=== PATIENT | female | born 1985 | race Caucasian/White ===

== ENCOUNTER 2019-11-28 11:02 | Emergency (ER) | payer OTHER ==
[~2019-11-28] VITALS: Ht 157.5 cm; Wt 95.3 kg
[2019-11-28 12:26] LABS: ABSOLUTE BASOPHILS 0.1 thou/uL (0.0-0.2); ABSOLUTE EOSINOPHILS 0.1 thou/uL (0.0-0.7); ABSOLUTE MONOCYTES 0.6 thou/uL (0.0-1.2); ABSOLUTE NEUTROPHILS 7.6 thou/uL (1.6-8.1); BASOPHILS 0.9 %; EOSINOPHILS 1.3 %; HEMATOCRIT 39.8 % (37.0-47.0); HEMOGLOBIN 13.5 gm/dL (12.0-15.0); LYMPHOCYTES 19.2 %; MCHC 33.9 g/dL (28.0-37.0); MCV 88.5 fL (80.0-100.0); MONOCYTES 5.6 %; NUCLEATED RBCS 0 /100WBC; PLATELET COUNT* 234 thou/uL (150-400); WBC 10.4 thou/uL (4.0-11.0)
[2019-11-28 12:35] LABS: CALCIUM 8.4 mg/dL (8.5-10.1); CREATININE 0.8 mg/dL (0.6-1.3); POTASSIUM 3.5 mmol/L (3.5-5.1)
[2019-11-28 12:52] LABS: ALBUMIN 3.4 g/dL (3.4-5.0); TOTAL BILIRUBIN 0.3 mg/dL (<0.1-1.0); TOTAL PROTEIN 7.4 g/dL (6.4-8.2)
[2019-11-28] MEDS ORDERED: NORCO 5-325 TA1 EAC1 PO (13:40)
[2019-11-28] MEDS ORDERED: ZOFRAN ODT4 MG DISSOLVE (13:40)
[2019-11-28] MEDS ORDERED: PROTONIX40 M2 PO (13:40)
[2019-11-28 14:01] VITALS: BP 119/73
--- NOTE | 2019-11-28 14:17 | EKG ---
[place] [address] ELECTROCARDIOGRAM REPORT Name: LARRY GARCIA Room: [facility]#: [id number] Admission: 11/28/19 Attend Phys: Discharge: 11/28/19 Date of : 81 Date of Service: 11/28/19 1126 Report #: [id number] THIS REPORT FOR: //name// [facility] ED Test Date: 2019-11-28 Test Time: 11:26:49 Pat Name: LARRY GARCIA Department: Room: Gender: F [place] [employer]: : 1985 Requested By: Jann Brennan Order Number: [id number] MD: Geoff Mike Measurements Intervals [place] Rate: 90 P: 53 IA: 170 QRS: 2 QRSD: 105 T: 17 QT: 363 QTc: 444 Interpretive Statements Sinus rhythm Low voltage, precordial leads No previous ECG available for comparison Electronically Signed On 11-28-2019 14:16:03 [employer] by Geoff Mike [email or web address] <ELECTRONICALLY SIGNED> By: Geoff Mike MD, [facility] 11/28/19 1416 25 25 Geoff Mike MD, [facility] /EPI
== END 2019-11-28 14:02 | disposition home or self-care (01) ==
LOC: M.ERS 11:02
PROVIDERS: Emergency Medicine Emergency Medical Services
DX: K27.9 Peptic ulcer, site unspecified, unspecified as acute or chronic, without hemorrhage or perforation (principal); R11.10 Vomiting, unspecified; Z88.8 Allergy status to other drugs, medicaments and biological substances; Z88.1 Allergy status to other antibiotic agents